=== PATIENT | female | born 1995 | race Two or more races ===

== ENCOUNTER 2017-08-23 17:15 | Emergency (ER) | payer OTHER, MEDICAID ==
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
[2017-08-23] MEDS ORDERED: NS 1,000 ML IV ONE (17:42)
[2017-08-23] MEDS ORDERED: fentaNYL 100 MCG/2 ML INJ IVP ONE ×2 (17:43→19:41)
[2017-08-23] MEDS ORDERED: ONDANSETRON 4 MG/2 ML VIAL IVP ONE ×2 (17:43→19:41)
[2017-08-23] MEDS ORDERED: IOPAMIDOL (ISOVUE-300) 100 ML BTL ONE ×2 (18:06→19:12)
[2017-08-23 18:49] LABS: % IMMATURE GRANULYOCYTES 0.2 % (0.0-1.1); ABSOLUTE IMMATURE GRANULOCYTES 0.02 10^3/uL (0.00-0.10); ADD DIFF? NO; ADD MORPH? NO; ADD SCAN? NO; ATYPICAL LYMPHOCYTE FLAG 10 (0-99); FRAGMENT RBC FLAG 20 (0-99); HEMATOCRIT 35.2 % (38.0-47.0); HEMOGLOBIN 11.2 g/dL (12.6-16.3); LEFT SHIFT FLG 0 (0-99); LIPEMIA HEMOLYSIS FLAG 80 (0-99); MEAN CELL HEMOGLOBIN 23.7 pg (27.9-34.1); MEAN CELL HEMOGLOBIN CONCENTR. 31.8 g/dL (32.4-36.7); MEAN CELL VOLUME 74.6 fL (81.5-99.8); MEAN PLATELET VOLUME 10.1 fL (8.7-11.7); PLATELET CLUMPS FLAG 0 (0-99); PLATELET COUNT 256 10^3/uL (150-400); RED BLOOD CELL COUNT 4.72 10^6/uL (4.18-5.33); RED CELL DISTRIBUTION WIDTH 17.4 % (11.5-15.2)
[2017-08-23 18:58] LABS: ANION GAP 11 mEq/L (8-16); CARBON DIOXIDE 25 mEq/l (22-31); CHLORIDE 107 mEq/L (97-110); CREATININE 0.6 mg/dL (0.6-1.0); GLOMERULAR FILTRATION RATE > 60; GLUCOSE 86 mg/dL (70-100); POTASSIUM 4.1 mEq/L (3.5-5.2); SODIUM 143 mEq/L (134-144)
[2017-08-23 19:02] LABS: COLOR PALE YELLOW; LEUKOCYTE ESTERASE,URINE NEGATIVE (NEGATIVE); NITRITE,URINE NEGATIVE (NEGATIVE)
[2017-08-23 19:04] LABS: MUCUS TRACE /lpf (NONE-1+); WBC,URINE NONE SEEN /hpf (0-3)
[2017-08-23 20:44] LABS: ALBUMIN 4.6 g/dL (3.5-5.0); TOTAL PROTEIN 7.1 g/dL (6.3-8.2)
[2017-08-23 20:47] LABS: BILIRUBIN,TOTAL 0.1 mg/dL (0.1-1.4); BILIRUBIN-CONJUGATED 0.1 mg/dL (0.0-0.5)
[2017-08-23 21:16] VITALS: BP 101/52; PULSE 60; O2SAT 95
[2017-08-23 23:27] VITALS: RESP 16; TEMP 97.7
== END 2017-08-23 23:20 | disposition home or self-care (01) ==
LOC: SANE 17:15 → EEVIPCON 17:15 → SANE 23:20
DX: T74.21XA Adult sexual abuse, confirmed, initial encounter (principal); S39.81XA Other specified injuries of abdomen, initial encounter; E86.9 Volume depletion, unspecified; J45.909 Unspecified asthma, uncomplicated; Y07.9 Unspecified perpetrator of maltreatment and neglect; Y92.89 Other specified places as the place of occurrence of the external cause; Y99.8 Other external cause status
CPT/HCPCS: 82947-QW; 96374; J2405; J3010; Q9967

== ENCOUNTER 2017-10-18 21:47 | Emergency (ER) | payer MEDICAID, OTHER ==
[2017-10-18] MEDS ORDERED: KETOROLAC 15 MG/1 ML SDV IVP ONE (22:04)
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
[2017-10-18 22:24] VITALS: TEMP 98.1
[2017-10-18 22:40] LABS: PLATELET COUNT 252 10^3/uL (150-400)
--- NOTE | 2017-10-18 22:40 | CPEKG ---
Heart Rate: 61 RR Interval: 984 P-R Interval: 148 QRSD Interval: 78 QT Interval: 444 QTC Interval: 448 P [place]: 17 QRS [place]: 48 T Wave [place]: 11 EKG Severity - BORDERLINE ECG - EKG Impression: SINUS RHYTHM EKG Impression: BORDERLINE T ABNORMALITIES, ANTERIOR LEADS Electronically Signed By: Vance Dobson 19-Oct-2017 07:00:04
[2017-10-18 23:09] VITALS: BP 132/74; PULSE 58; RESP 16; O2SAT 96
== END 2017-10-18 23:12 | disposition home or self-care (01) ==
LOC: EDUNIT#
DX: R55 Syncope and collapse (principal); N83.209 Unspecified ovarian cyst, unspecified side; J45.909 Unspecified asthma, uncomplicated
CPT/HCPCS: 96374